=== PATIENT | male | born 2000 | race Caucasian/White ===

== ENCOUNTER 2022-04-28 10:37 | Emergency (ER) | payer OTHER, SELFPAY ==
[2022-04-28 10:40] VITALS: BP 139/86; PULSE 92; RESP 16; TEMP 37.4; O2SAT 98; BMI 22.8
--- NOTE | 2022-04-28 10:46 | ED_ITS ---
HPI - General Adult General Chief complaint: General Medical Stated complaint: n/v/d Time Seen by Provider: 04/28/22 10:45 Source: patient Mode of arrival: ambulatory Limitations: no limitations History of Present Illness HPI narrative: Patient is a 21 year old assigned male at with no reported medical history presenting to the emergency department today with body aches, cough, and nausea. Patient states that starting yesterday he began to have body aches, nausea, and a cough. Patient states that his girlfriend has the same symptoms. Patient denies any dizziness, lightheadedness, abdominal pain, fever, chills, blurry vision, double vision, loss of vision, chest pain, difficulty breathing, shortness of breath, back pain, night sweats, pain with urination, increased urinary frequency, increased urinary urgency, blood in his urine or stool, syncope or a near syncopal episode, recent trauma or falls, bowel incontinence, bladder incontinence, bowel retention, bladder retention, or any other complaints at this time. Onset (ago): day(s) (1) Severity: mild Severity scale (1-10): 3 Relieving factors: none Exacerbating factors: none Associated symptoms: cough and nausea/vomiting Treatments prior to arrival: none Related Data Previous Rx's Medication Instructions Recorded benzonatate 100 mg capsule 100 mg PO BID PRN cough 7 days #14 04/28/22 caps ondansetron 4 mg disintegrating 4 mg PO Q8H 3 days #9 tabs 04/28/22 tablet Allergies Allergy/AdvReac Type Severity Reaction Status Date / Time No Known Allergies Allergy Verified 04/28/22 10:42 Review of Systems Constitutional: Constitutional: Reports no additional constitutional complaints, Reports body ache(s), Denies chills, Denies fever(s) and Denies night sweats Eyes: Eyes: Reports no additional eye complaints, Denies blurry vision, Denies change in vision, Denies diplopia, Denies eye discharge, Denies loss of vision and Denies eye pain ENT: Denies dizziness Cardiovascular: Cardiovascular: Reports no additional cardiovascular complaints, Denies chest pain, Denies lightheadedness, Denies Loss of Consciousness and Denies dyspnea Respiratory: Respiratory: Reports no additional respiratory complaints, Reports cough and Denies dyspnea Gastrointestinal: Gastrointestinal: Reports no additional gastrointestinal complaints, Denies abdominal pain, Denies melena, Denies hematochezia, Denies change in bowel habits, Denies change in stool character, Reports nausea and Reports vomiting Genitourinary: Genitourinary: Reports no additional male genitourinary complaints, Denies hematuria, Denies oliguria, Denies difficulty urinating, Denies dysuria, Denies urinary frequency, Denies urinary hesitancy, Denies urinary incontinence and Denies urinary urgency Musculoskeletal: Musculoskeletal: Reports no additional musculoskeletal complaints, Denies numbness and Denies tingling Neurologic: Denies dizziness, Denies loss of vision, Denies numbness and Denies tingling Psychiatric: Psychiatric: Reports no additional psychiatric complaints Endocrine: Endocrine: Reports no additional endocrine complaints Hematologic/Lymphatic: Hematologic/Lymphatic: Reports no additional hematologic/lymphatic complaints Allergic/Immunologic: Allergic/Immunologic: Reports no additional allergic/immunologic complaints PMFSH Past Medical History Attestation statement: The following information was validated with the patient. Source: old records reviewed and nursing notes reviewed Social History Social History Advance Directives: No Advance Directives Information Provided: No Physical Exam ED Vital Signs: Vital Signs - 24 hr 04/28/22 10:40 Temperature 99.3 F Pulse Rate 92 Respiratory Rate 16 Blood Pressure 139/86 Pulse Oximetry 98 Oxygen Delivery Method Room Air BMI result Body Mass Index 22.8 Const General: cooperative, no acute distress, alert and awake Nutritional Appearance: well nourished Orientation/consciousness: patient oriented x3 Limitations: no limitations HENMT Head: Yes normal to inspection and Yes atraumatic Ears: hearing grossly normal bilaterally and external ears normal General nose exam: Normal external nose present, no nasal discharge noted and no epistaxis Face and sinus: Yes normal facial exam, No abrasion and No laceration Mouth: Normal oral and palatal mucosa present, no drooling and no muffled voice Eyes General: appearance normal, both eyes and all related structures Periorbital: periorbital findings normal Eyelids: Yes eyelids normal Conjunctivae: conjunctivae normal Pupils: Equal, round and reactive pupils present EOM: EOMs intact bilaterally Neck Neck: Yes normal visual inspection, Yes full ROM and Yes no lymphadenopathy Chest Chest palpation & inspection: normal inspection of the chest Resp Effort & Inspection: normal respiratory effort and able to speak in complete sentences Auscultation: clear to auscultation bilaterally Cardio Rate: regular rate Rhythm: regular rhythm GI Inspection: Yes normal to inspection Palpation (GI): Soft to palpation, not firm, nontender, no guarding and not rigid Neuro General: patient oriented x3 and moves all extremities Cranial nerves: Yes Equal, round and reactive pupils present Cognition (Neuro): normal cognition Motor exam (neuro): 5/5 motor strength present throughout Sensory Exam: Normal double simultaneous stimulation for sensation Coordination: [id number] test normal Extrem General: Yes normal to inspection, Yes full ROM and Yes capillary refill normal Psych Appearance: grossly normal Mental Status: mental status grossly normal Affect: normal affect Attitude: cooperative Thought process: Normal thought process present Thought content: Normal thought content present Insight: Good insight present (Psych) Medical Decision Making Medical Decision Making MDM Narrative: Patient is a 21 year old assigned male at with no reported medical history presenting to the emergency department today with body aches, cough, nausea, and vomiting. Patient's physical exam was unremarkable. Patient's influenza test was positive. I explained my physical exam findings as well as all test results to the patient. I answered all questions asked by the patient. Patient received PO Tylenol which he stated helped his symptoms significantly. I stressed the importance of the patient taking his medication as prescribed. I stressed the importance of the patient following up with his primary care provider. I stressed the importance of the patient returning to the emergency department immediately if his symptoms were to worsen or if he were to develop any dizziness, shortness of breath, difficulty breathing, chest pain, blurry vision, loss of vision, nausea, vomiting, abdominal pain, fever, chills, back pain, or any other complaints. Patient verbalized agreement and understanding with this treatment plan and discharge. Differential Diagnosis Differential Diagnoses: The differential diagnosis associated with the presentation includes URI, influenza, COVID-19, RSV, enteritis, nausea, vomiting Lab Data [facility] Lab Attestation statement: I reviewed the patient's lab results. Labs: Lab Results 04/28/22 Range/Units 10:46 Influenza Type A (PCR) POSITIVE A (Negative) Influenza Type B (PCR) NEGATIVE (Negative) RSV RNA Qual (PCR) NEGATIVE (Negative) SARS-CoV-2 RNA (RT-PCR) NEGATIVE (Negative) Discharge Plan Discharge Clinical Impression: Influenza Patient Disposition: Home, Self-Care Instructions: Influenza (ED) Additional Instructions: Follow up with your primary care provider. Return to the emergency department immediately if your symptoms worsen or if you develop any dizziness, shortness of breath, difficulty breathing, chest pain, blurry vision, loss of vision, nausea, vomiting, abdominal pain, fever, chills, back pain, or any other complaints. Prescriptions: New benzonatate 100 mg capsule 100 mg PO BID PRN (Reason: cough) 7 Days Qty: 14 0RF ondansetron 4 mg tablet,disintegrating 4 mg PO Q8H 3 Days Qty: 9 0RF [place] [facility] [place] (Call to establish and follow up with a primary care provider. If you already have a primary care provider, please follow up with them. ) [facility] [place]Provider Group] (Call to establish and follow up with a primary care provider. If you already have a primary care provider, please follow up with them. ) [facility] [place] Group] (Call to establish and follow up with a primary care provider. If you already have a primary care provider, please follow up with them. ) Stand Alone Forms: Work/School Release Print Language: Icelandic
--- OUTSIDE RECORDS SUMMARY | 2022-04-28 11:12 | XMS_ITS | Continuity of Care Document ---
:2000 Author Organization [facility] Address [address] [place] [address]- Care Team Providers Name Role Phone Natty Aguilar MD [place] Care Phys[place] [facility] [place] - 07/05/[address] [id number]- Discharge Disposition: A-D/C Home Referring Physician: Not on Staff, Referring MD Allergies, Adverse Reactions, Alerts No Known Allergies Immunizations Given and Recorded Vaccine Date Status Refusal Reason Human Papillomavirus Vaccine 07/10/14 Given Human Papillomavirus Vaccine 03/27/13 Given influenza virus vaccine, inactivated 07/10/14 Given influenza virus vaccine, inactivated 02/23/13 Given Meningococcal Conjugate Vaccine 03/27/13 Given tetanus/diphtheria/pertussis, acel(Tdap) 02/23/13 Given influenza virus vaccine, live1 02/25/12 Given Varicella Virus Vaccine 12/28/06 Given Varicella Virus Vaccine 01/15/02 Given Measles/Mumps/Rubella Virus Vaccine 08/17/05 Given Measles/Mumps/Rubella Virus Vaccine 01/15/02 Given Poliovirus Vaccine, Inactivated 08/17/05 Given Poliovirus Vaccine, Inactivated 03/19/02 Given Poliovirus Vaccine, Inactivated 01/15/02 Given Poliovirus Vaccine, Inactivated 02/28/01 Given diphtheria/tetanus/pertussis, acel(DTaP) 08/17/05 Given diphtheria/tetanus/pertussis, acel(DTaP) 06/20/02 Given diphtheria/tetanus/pertussis, acel(DTaP) 03/19/02 Given diphtheria/tetanus/pertussis, acel(DTaP) 01/15/02 Given diphtheria/tetanus/pertussis, acel(DTaP) 02/28/01 Given pneumococcal 13-valent vaccine 01/15/02 Given pneumococcal 13-valent vaccine 02/28/01 Given haemophilus b conjugate (PRP-T) vaccine 01/15/02 Given haemophilus b conjugate (PRP-T) vaccine 02/28/01 Given hepatitis B pediatric vaccine 01/15/02 Given hepatitis B pediatric vaccine 01/04/01 Given hepatitis B pediatric vaccine 00 Given 1Admin Note: vis given (dated 11/01/11) Medications multivitamin with fluoride Multiple Vitamins with Fluoride 1 mg oral tablet, chewable 1 tablet, Chew, Daily, # 90 tablet, 5 Refills, Maintenance, 07/10/14 16:12:18, Chew Tablet, 1 tabletChew Daily Start Date: 07/10/14 Status: Orderedondansetron 4 mg oral tablet, disintegrating 1 tablet = 4 mg, By Mouth, Every 8 hours, PRN as needed for nausea/vomiting, for 3 days, # 9 tablet,0 Refills, Acute 07/08/21 19:11:00 EST, 07/05/21 19:11:00 EST, DIS Tablet, [facility]/pharmacy #[id number], Partial fill upon patient request if the prescription i... Start Date: 07/05/21 Stop Date: 07/08/21 Status: Ordered Problem List Condition Effective Dates Status Health Status Informant Healthy infant or child(Confirmed) Active Vital Signs Most recent to oldest [Reference 1 2 3 Range]: Oxygen Saturation [94-100 %] 96 % 98 % 99 % (07/05/21 7:25 PM) (07/05/21 5:20 PM) (07/05/21 4:38 P M) Pulse Rate [55-90 bpm] 82 bpm 90 bpm 86 bpm (07/05/21 7:25 PM) (07/05/21 5:20 PM) (07/05/21 4:38 P M) Blood Pressure [90-138/55-84 mm 134/63 mm Hg 120/84 mm Hg 121/69 mm Hg Hg] (07/05/21 7:25 PM) (07/05/21 5:20 PM) (07/05/21 4:38 P M) Respiratory Rate [16-30 br/min] 18 br/min 18 br/min 20 br/min (07/05/21 7:25 PM) (07/05/21 5:20 PM) (07/05/21 4:38 P M) Temperature [96.8-100.4 DegF] 98.6 DegF 98.4 DegF (07/05/21 5:20 PM) (07/05/21 4:38 PM) Liters per Minute 0 L/min (07/05/21 4:38 PM) Mode of Delivery (Oxygen) Room air Room air Room a ir (07/05/21 7:25 PM) (07/05/21 5:20 PM) (07/05/21 4:38 P M) Blood pressure sites Arm, left Arm, right (07/05/21 5:20 PM) (07/05/21 4:38 PM) Temperature Route Oral Oral (07/05/21 5:20 PM) (07/05/21 4:38 PM) Social History Social History Type Response Smoking Status Unknown if ever smoked entered on: 07/10/14 Sex
[2022-04-28 11:29] LABS: Influenza A PCR POSITIVE (Negative); Influenza B PCR NEGATIVE (Negative); Resp Syncy Virus RNA Qual PCR NEGATIVE (Negative); SARS COV2 PCR INHOUSE NEGATIVE (Negative)
[2022-04-28] MEDS: Acetaminophen 325 MG TABLET 650 MG PO (12:14)
== END 2022-04-28 12:17 | disposition home or self-care (01) ==
PROVIDERS: Emergency Provider Student in an Organized Health Care Education/Training Program
DX: J10.1 Influenza due to other identified influenza virus with other respiratory manifestations (principal); R11.2 Nausea with vomiting, unspecified; M79.10 Myalgia, unspecified site; R05.9 Cough, unspecified; Z20.822 Contact with and (suspected) exposure to COVID-19
CPT/HCPCS: 0241U; 99283